=== PATIENT | female | born 1990 | race African-American/Black ===

== ENCOUNTER 2019-03-28 00:16 | Emergency (ER) | payer SELFPAY ==
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
== END 2019-03-28 01:55 | disposition left against medical advice (07) ==
LOC: JD.ED 00:16
DX: F10.129 Alcohol abuse with intoxication, unspecified (principal)
CPT/HCPCS: 99284

== ENCOUNTER 2019-03-28 03:17 | Emergency (ER) | payer SELFPAY ==
[2019-03-28] MEDS ORDERED: Ondansetron 4 MG Tab.DIS PO ONE (03:38)
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
== END 2019-03-28 09:40 | disposition home or self-care (01) ==
LOC: JD.ED 03:17
DX: F10.929 Alcohol use, unspecified with intoxication, unspecified (principal); Y90.6 Blood alcohol level of 120-199 mg/100 ml; T76.21XA Adult sexual abuse, suspected, initial encounter
CPT/HCPCS: 36415; 80053; 84703; 85025; 99283; A9270; G0480